=== PATIENT | male | born 2000 | race American Indian/Alaskan Native ===

== ENCOUNTER 2022-08-26 00:53 | Emergency (ER) | payer SELFPAY | END 2022-08-26 01:45 | disposition home or self-care (01) | LOC: FB.ED 00:53 | DX: S61.012A Laceration without foreign body of left thumb without damage to nail, initial encounter (principal); W26.8XXA Contact with other sharp object(s), not elsewhere classified, initial encounter | CPT/HCPCS: 99281; 99282 ==